=== PATIENT | female | born 1980 | race Caucasian/White ===

== ENCOUNTER → 2021-03-06 | Outpatient (CLI) | payer MEDICAID, SELFPAY ==
--- NOTE | 2021-03-06 10:15 | EMB_PTH ---
PATIENT: MAKENNA PRINCE LOC: [facility] U#:[id number] AGE/SX: 40/F ROOM: RE03/06/[address]: Dr. Scott Garcia MD : 1980 BED: DIS: 03/06/2021 SPEC #: [id number] RECD: 03/06/21 11:58 STATUS: ELBA REAlessandra #: [id number] MELONY: 03/06/21 10:[address]: Scott Garcia DEPT: SURGICAL PATHOLOGY RECD BY: Blank Olvera Tissues: Endometrium, NOS Procedures: Surgery Specimen Level IV HEADER OPERATION: Endometrial biopsy PRE-OP DIAGNOSIS: N93.9, R10.2, N84.0 TISSUE SUBMITTED: Endometrium MICROSCOPIC DIAGNOSIS Endometrium, biopsy: Secretory endometrium. AM:shani 03/07/2021 MICROSCOPIC DESCRIPTION Slides are reviewed. GROSS DESCRIPTION Received in fixative is one container labeled with the patient's name and designated EM biopsy. The specimen consists of multiple irregular fragments of see-pink soft tissue that in aggregate measure 2.5 x 1.5 x 0.2 cm. The specimen is totally submitted in one cassette. / SJ:rg 03/06/21 TC:5 [facility]: [id number]
== END | disposition home or self-care (01) ==
LOC: LABSPEC 11:38
PROVIDERS: Visit Provider Obstetrics & Gynecology
DX: N84.0 Polyp of corpus uteri (principal); N93.9 Abnormal uterine and vaginal bleeding, unspecified; R10.2 Pelvic and perineal pain
CPT/HCPCS: 88305

== ENCOUNTER 2021-03-29 09:17 | Day surgery (SDC) | payer MEDICAID, SELFPAY ==
[2021-03-23 10:43] LABS: Hematocrit 36.6 % (37-47); Hemoglobin 11.1 g/dL (12.0-15.0); Mean Corp Hgb Conc 30.3 g/dL (32-36); Mean Corpuscular Hgb 24.2 pg (27.0-32.0); Mean Corpuscular Volume 79.9 fL (81-99); Platelet Count 436 K/mm3 (150-450); RBC Distribution Width CV 15.5 % (11.6-14.6); Red Blood Count 4.58 M/mm3 (4.2-5.4); White Blood Count 8.5 K/mm3 (4.4-11.0)
[2021-03-29] VITALS (8 sets, daily range): BP systolic 116–158; BP diastolic 60–97; PULSE 62–77; RESP 16; TEMP 36–37.1; O2SAT 93–100; BMI 35.4
[2021-03-29] MEDS: Lactated Ringers 1,000 ML 100 ML IV (09:30)
--- NOTE | 2021-03-29 11:01 | PCM.HP.BLA ---
History and Physical Date of Admission: 03/29/21 Surgical History and Physical Date: 03/29/2021 Name: AMANDA PRINCE Age: 40 Date of : 1980 Amanda Prince, a 40 year old female 3 0 0 0 3, presents for Hysteroscopy, dilation curettage, endometrial ablation Kaitlin on March 29, 2021 Pt is scheduled for a D+C, hysteroscopy, and Kaitlin ablation. Consents reviewed and signed. No questions expressed at this time. MEDICATIONS HISTORY: Patient is also takin. ProAir HFA 90 mcg/actuation aerosol inhaler, 2 puffs every 4 to 6 hrs as needed 2. omeprazole 20 mg capsule,delayed release, As Directed 3. Symbicort 160 mcg-4.5 mcg/actuation HFA aerosol inhaler, As Directed ALLERGIES: No Known Allergies Illnesses - GERD, Asthma and Reactive Airway Disease Hospitalizations - see surgery Depression, TIA (2003), Duodenal CA and Bilateral Breast Reduction; Review of Systems: GENERAL - Denies fever, or chills SKIN - Denies skin changes EYES - Denies visual changes EARS - Denies difficulty hearing NOSE - Denies nasal congestion or bleeding MOUTH - Denies sore throat or difficulty swallowing NECK - Denies pain or swelling RESPIRATORY - Denies shortness of breath or wheezing CARDIOVASCULAR - Denies palpitations or chest pain GASTROINTESTINAL - Denies nausea, vomiting, diarrhea, constipation GENITOURINARY - Denies dysuria, frequency of urination, incontinence of urine MUSCULOSKELETAL - Denies joint or muscle pain NEUROLOGICAL - Denies localized numbness or weakness PSYCHIATRIC - Denies depression or anxiety ENDOCRINE - Denies heat or cold intolerance, weight loss or gain HEMATO-IMMUNOLOGIC - Denies excessive bleeding with cuts SOCIAL HISTORY: Smoking - 1/2 PPD Job Description - Finisher Sexual Activity - Residence - Lives w/ Spouse-Sig Other Name - Wilfred Spouse-Sig Other Occupation - Store Receiving Specialist Children Name(s) - 3 children Control - Tubal FAMILY HISTORY: MENSTRUAL HISTORY: LMP Known?- DefiniteAmount/Duration - 6 days, Regularity - Regular, LMP - 03/09/21 PAST PREGNANCIES: Total Pregnancies - 3; Full Term Pregnancies - 3; Premature - 0; Abortions, Induced - 0; Abortions, Spontaneous - 0; Ectopics - 0; Multiple Births - 0; Living Children - 3 SURGICAL HISTORY: 1. Bilateral Breast Reduction 1998 ; - 2. Tubal Ligation 2004 ; - 3. Laparoscopic Duodenal Resection 07/2019 ; - Duodenal Carcinoma 4. Hiatal Herniorrhaphy 2019 ; - 5. Appendectomy 2011 ; - 6. Cholecystectomy 2009 ; - 7. Carpal Tunnel both Wrists 2000 ; - 8. Tang Fundoplication 2009 ; - PHYSICAL EXAM BP- 132/80 Sitting, Right arm, large cuff Weight- 195.94809 lbs Height- 61.00 inch BMI:[id number] CONSTITUTIONAL - NAD, well nourished, and well developed SKIN - No rash, lesions, or ulcers HEENT - Normocephalic, PERRLA, EOMI NECK - No nodes, no nuchal rigidity and thyroid normal size and texture EXTREMITIES - No edema or calf tenderness NEUROLOGICAL - Cranial nerves II-XII grossly intact PSYCHIATRIC - A and O to time, place, person, mood and affect External Genital Vagina - non-tender without lesions Urethra/Urethral Meatus - non-tender Bladder - non-tender Vagina - vaginal french are pink and moist without loss of rugae and no evidence of atropy Cervix - without cervical motion tenderness and has normal size and features without evident lesions Uterus - 8 cm in size, mobile and nontender Adnexa - clear without masses or tenderness ASSESSMENT/PLAN: 1. Abnormal Uterine And Vaginal Bleeding, Unspecified and Polyp Of Corpus Uteri AUB. Heavy menses for years. Ultrasound with uterus measuring 8.8 cm EMB negative Educated patient on results risk benefits alternatives. Patient elects for hysteroscopy D&C ablation 2. Encounter For Other Preprocedural Examination Patient scheduled for hysteroscopy D&C ablation for abnormal uterine bleeding Educated patient on risk benefits alternatives of procedure. Patient stated understanding and wished to proceed. All questions were answered consent was signed Patient with no complications with anesthesia. No changes in medical history. Educated on postoperative pain recovery and expectations
--- NOTE | 2021-03-29 11:05 | EMB_PTH ---
PATIENT: MAKENNA PRINCE LOC: [facility] U#:[id number] AGE/SX: 40/F ROOM: RE03/29/[address]: Dr. Scott Garcia MD : 1980 BED: DIS: 03/29/2021 SPEC #: [id number] RECD: 03/29/21 12:47 STATUS: ELBA REAlessandra #: [id number] MELONY: 03/29/21 11:[address]: Scott Garcia DEPT: SURGICAL PATHOLOGY RECD BY: Blank Olvera ENTERED: 03/30/21 08:42 SP TYPE: ENDOM BX/C OTHR DR: MIKE Koch Tissues: Endometrium, NOS Procedures: Surgery Specimen Level IV HEADER OPERATION: Hysteroscopy, D & C, endometrial ablation, Kaitlin, polypectomy PRE-OP DIAGNOSIS: Abnormal uterine and vaginal bleeding, polyp of corpus uteri TISSUE SUBMITTED: Endometrium and polyp MICROSCOPIC DIAGNOSIS Endometrium and polyp, curettings: Polypoid fragments of secretory endometrium. AM:shani 04/02/2021 MICROSCOPIC DESCRIPTION Slides are reviewed. GROSS DESCRIPTION Received in fixative is one container labeled with the patient's name and designated endometrium plus polyp. The specimen consists of multiple irregular fragments of see-pink soft tissue mixed with polypoid tissue that in aggregate measure 5 x 3 x 0.3 cm. The specimen is totally submitted in two cassettes. / SJ:shani 03/30/21 TC:5 CPT: 35741
--- NOTE | 2021-03-29 12:11 | PCM.DC ---
Discharge Instructions Diet Discharge Diet: No restrictions Activity Discharge Activity: Return to Normal Activity, May Drive and May Shower May resume sexual activity in: 4-6 weeks Weight Bearing Status: Weight bearing as tolerated Dressing / Incision Call your doctor if your incision/area has: Continuous Slow Oozing Call your doctor if you observe: Fever of 101 or Higher, Shortness of breath and Chest pain Follow Up Care Please Follow Up With: Scott Garcia MD When: 2 weeks postoperatively Test Results: Test results from this visit will be discussed in further detail at your follow-up appointment, if applicable. Discharge Plan Admission Attending Provider: Scott Garcia Primary Care Provider: Brittany Moreau Discharge Orders/Prescriptions Prescriptions: No Action sucralfate [Carafate] 1 gram Tablet 1 g PO 4X/DAY RF: 0 albuterol sulfate 90 mcg/actuation Hfa Aerosol Inhaler 1 inh INHALATION Q6H PRN (Reason: SOB) RF: 0 albuterol sulfate 2.5 mg/0.5 mL Solution For Nebulization 2.5 mg INHALATION Q20M PRN (Reason: SOB) RF: 0 budesonide-formoterol [Symbicort] 160-4.5 mcg/actuation Hfa Aerosol Inhaler 2 puff INHALATION BID RF: 0 omeprazole 20 mg Tablet,Delayed Release (Dr/Ec) 40 mg PO DAILY RF: 0 Zyrtec 10 mg Capsule 10 mg PO DAILY RF: 0 Disposition Discharge Orders: Discharge Patient (Routine); Ordered 03/29/21 Ordered By: Dr. Scott Garcia
--- NOTE | 2021-03-29 12:12 | PCM.OPRPT ---
Report of Operation Date of Procedure: 03/29/21 Pre-Operative Diagnosis: Abnormal uterine bleeding, uterine polyp Post-Operative Diagnosis: Abnormal uterine bleeding, uterine polyp Surgery/Procedure Performed:: Hysteroscopy, D&C, polypectomy, Kaitlin endometrial ablation Description of Surgical Findings:: Surgeon: Scott Garcia MD Anesthesia: MAC EBL: 10 cc Urine output: 200 cc IV fluids: 300 cc Complications: None Specimen: Endometrial curettage, uterine polyp Findings: Uterine cavity with 1 centimeter endometrial polyp. Otherwise no pathology found. Cavity length 7 cm, Kaitlin device set to max length of 6.5 cm. Post procedure hysteroscopy with no new pathology Consent: Patient with abnormal uterine bleeding and uterine polyp in need of hysteroscopy D&C Kaitlin endometrial ablation. Patient understands the risk of the procedure includes but are not limited to visceral or vascular injury, prolonged hospitalization, blood loss and need for transfusion, reoperation. Patient stated understanding and wished to proceed. All questions were answered and consent was signed. Procedure: Patient was brought back to the OR where MAC anesthesia was found to be adequate. Patient was prepared and draped in a dorsolithotomy position with yellowfin stirrups. A weighted speculum was placed in the posterior aspect of the vagina and the cervix was dilated with cervical dilators. Hysteroscope was inserted and above findings were noted. Using polyp forceps uterine polyp was removed and sent to pathology. Sharp curettage was performed. And sent to pathology. Kaitlin endometrial device with above settings, 120 seconds of ablation time. Kaitlin device was removed under direct visualization. Hysteroscope post procedure was performed and above findings were noted. Good hemostasis was noted. All counts correct x2. Patient tolerated the procedure well and was brought to recovery in stable condition.
[2021-03-29] MEDS: Ketorolac 30 MG/ML Syringe IV (12:41)
== END 2021-03-29 15:21 | disposition home or self-care (01) ==
LOC: SDC 09:17 → AC 09:18
PROVIDERS: PCP Physician Assistant; Referring Provider Obstetrics & Gynecology; Visit Provider Obstetrics & Gynecology
PROC: 0U5B8ZZ Destruction of Endometrium, Via Natural or Artificial Opening Endoscopic (ICD-10-PCS; CPT 58558; principal; 2021-03-29 10:50)
DX: N84.0 Polyp of corpus uteri (principal); N93.9 Abnormal uterine and vaginal bleeding, unspecified; F32.A Depression, unspecified; K21.9 Gastro-esophageal reflux disease without esophagitis; J45.909 Unspecified asthma, uncomplicated; Z79.899 Other long term (current) drug therapy
CPT/HCPCS: 58558; 36415; 85027; 86850; 86900; 86901; 87426; 88305; J7120; J2405

== ENCOUNTER → 2022-07-10 | Outpatient (CLI) | payer MEDICAID, SELFPAY ==
[2022-07-15 18:31] LABS: HPV APTIMA, High Risk Negative (Negative)
== END | disposition home or self-care (01) ==
LOC: LABSPEC 14:24
PROVIDERS: PCP Physician Assistant; Visit Provider Obstetrics & Gynecology
DX: Z12.4 Encounter for screening for malignant neoplasm of cervix (principal)
CPT/HCPCS: 87624; 88175; G0145

== ENCOUNTER → 2022-07-18 | Outpatient (CLI) | payer MEDICAID, SELFPAY ==
--- NOTE | 2022-07-18 12:59 | BI_ITS ---
MAMMOGRAPHY - BILATERAL SCREENING REASON FOR EXAM: Female, 42 years old. Routine annual screening examination. PERTINENT HISTORY: Aunt with breast cancer. History of bilateral breast reduction surgery. TECHNIQUE: Digital bilateral breast parminder (3D mammographic acquisition) in the CC and MLO projections. 2-D mediolateral oblique (MLO) and craniocaudad (CC) views of both breasts were obtained. CAD: Full Field Digital Mammography with Computer Added Detection was performed. COMPARISON: None. Baseline examination. FINDINGS: Breast Composition: There are scattered areas of fibroglandular density. There are no dominant masses or suspicious calcifications. No other significant abnormalities are identified. There has been no significant change since the prior study. BI/SCRN MAMM (CAD)W/PARMINDER BILAT IMPRESSION: Stable bilateral screening mammogram. Yearly follow-up mammogram recommended. (A) ASSESSMENT CATEGORY: BIRADS Category 1: Negative. A letter regarding these results will be sent to the patient by the facility within 30 days. Approximately 10% of breast cancers are not detected by mammography. A normal mammogram should not delay biopsy of a clinically suspicious abnormality. [id number] Electronically Signed: Finn Galindo MD at 13:46 EST ,
== END | disposition home or self-care (01) ==
LOC: OPBI 12:57
PROVIDERS: PCP Physician Assistant; Referring Provider Obstetrics & Gynecology; Visit Provider Obstetrics & Gynecology
DX: Z12.31 Encounter for screening mammogram for malignant neoplasm of breast (principal); Z80.3 Family history of malignant neoplasm of breast
CPT/HCPCS: 77063; 77067